=== PATIENT | male | born 1990 | race Caucasian/White ===

== ENCOUNTER 2022-03-12 18:23 | Emergency (ER) | payer BC ==
[~2022-03-12] VITALS: Ht 172.7 cm; Wt 80.0 kg
[2022-03-12] MEDS ORDERED: KETOROLAC 60MG/2ML VIAL IM ONE (18:45)
[2022-03-12] MEDS ORDERED: KETOROLAC 60MG/2ML VIAL IM NR (21:00)
[2022-03-12 21:29] VITALS: BP 130/88
[2022-03-13] MEDS ORDERED: IBUP-2029 MT (09:50)
== END 2022-03-12 21:48 | disposition home or self-care (01) ==
LOC: ER 18:51
DX: R50.9 Fever, unspecified (principal); R00.0 Tachycardia, unspecified; M79.18 Myalgia, other site; R53.83 Other fatigue; Z20.822 Contact with and (suspected) exposure to COVID-19
CPT/HCPCS: 87426; 87804; 96372; 99283; C9803; J1885

== ENCOUNTER 2022-03-13 09:13 | Emergency (ER) | payer BC ==
[~2022-03-13] VITALS: Ht 172.7 cm; Wt 82.0 kg
[2022-03-13 09:16] VITALS: BP 139/85
[2022-03-13] MEDS ORDERED: IBUP-2029 MT (09:50)
== END 2022-03-13 10:01 | disposition home or self-care (01) ==
LOC: ER 09:42
DX: R51.9 Headache, unspecified (principal); M79.10 Myalgia, unspecified site; Z59.00 Homelessness unspecified
CPT/HCPCS: 99281; 99282